=== PATIENT | male | born 1985 | race Caucasian/White ===

== ENCOUNTER → 2023-09-27 | Outpatient (CLI) | payer BC ==
--- NOTE | 2023-09-27 08:57 | US ---
EXAMINATION TYPE: US duplex aorta DATE OF EXAM: 09/27/2023 COMPARISON: NONE CLINICAL INDICATION: Male, 37 years old with history of Z82.49 FAMILY HX OF ISCHEMIC HEART DIS; 37 ye ar old pt states Family history of AAA TECHNIQUE: Multiple sonographic images of the abdominal aorta are obtained. FINDINGS: EXAM MEASUREMENTS: Abdominal Aorta: Proximal: 1.9 x 2.0 cm Mid: 1.6 x 1.7 cm Distal: 1.5 x 1.6 cm Bifurcation: Right Illiac: 0.8 x 0.7 cm Left Illiac: 0.7 x 0.8 cm [employer] NOTES: Aorta appeared wnl, no evidence of AAA IMPRESSION: No evidence for aortic aneurysm.
== END | disposition home or self-care (01) ==
LOC: RADUSWWP 07:43
PROVIDERS: ATTEND Family Medicine
DX: Z82.49 Family history of ischemic heart disease and other diseases of the circulatory system (principal)
CPT/HCPCS: 76706

== ENCOUNTER → 2024-11-19 | Outpatient (CLI) | payer BC ==
[2024-11-19 21:22] LABS: Basophils # (A) 0.07 X 10*3/uL (0.00-0.10); Basophils % (A) 0.8 %; Eosinophils # (A) 0.28 X 10*3/uL (0.04-0.35); Eosinophils % (A) 3.2 %; HCT 45.6 % (39.6-50.0); Lymphocytes # (A) 2.24 X 10*3/uL (0.90-5.00); Lymphocytes % (A) 25.6 %; MCH 29.9 pg (27.0-32.0); MCHC 35.1 g/dL (32.0-37.0); MCV 85.1 FL (80.0-97.0); Mean Platelet Volume 10.3 FL (9.5-12.2); Monocytes # (A) 0.84 X 10*3/uL (0.20-1.00); Monocytes % (A) 9.6 %; NRBC Per 100 WBC 0 X 10*3/uL (0.00-0.01); Neutrophils # (A) 5.28 X 10*3/uL (1.80-7.70); Neutrophils % (A) 60.3 %; Platelet Count 317 X 10*3/uL (140-440); RBC 5.36 X 10*6/uL (4.40-5.60); RDW 12.6 % (11.5-14.5); WBC 8.75 X 10*3/uL (4.50-10.00)
[2024-11-19 21:28] LABS: Appearance,Urine Clear (Clear); Bilirubin,Urine Negative (Negative); Blood,Urine Negative (Negative); Color,Urine Yellow (Yellow); Ketones,Urine Negative (Negative); Nitrite,Urine Negative (Negative); Specific Gravity,Urine 1.021 (1.001-1.030); Urobilinogen,Urine 0.2 E.U./DL
[2024-11-19 21:35] LABS: BUN/Creat Ratio 11.71 Ratio (12.00-20.00); Blood Urea Nitrogen 8.2 mg/dL (9.0-27.0); Glucose 96 mg/dL (70-110)
[2024-11-19 21:36] LABS: ALT 86 U/L (10-49); AST 43 U/L (14-35); Albumin 4.8 g/dL (3.8-4.9); Albumin/Globulin Ratio 1.78 Ratio (1.60-3.17); Alkaline Phosphatase 64 U/L (41-126); Calcium 10.3 mg/dL (8.7-10.3); Carbon Dioxide 23.2 mmol/L (21.6-31.8); Chloride 104 mmol/L (96-109); Globulin 2.7 g/dL (1.6-3.3); Potassium 4.4 mmol/L (3.5-5.5); Sodium 140 mmol/L (135-145); T4, Free (Free Thyroxine) 1.21 ng/dL (0.80-1.80); Total Bilirubin 0.5 mg/dL (0.3-1.2); Total Protein 7.5 g/dL (6.2-8.2)
== END | disposition home or self-care (01) ==
LOC: LABWHC1 16:29
PROVIDERS: ATTEND Registered Nurse
DX: Z13.6 Encounter for screening for cardiovascular disorders (principal); N40.0 Benign prostatic hyperplasia without lower urinary tract symptoms
CPT/HCPCS: 36415; 80053; 80061; 81003; 83036; 84153; 84439; 84443; 85025

== ENCOUNTER → 2024-12-24 | Outpatient (CLI) | payer BC ==
--- NOTE | 2024-12-24 09:18 | US ---
EXAMINATION TYPE: US abdomen limited DATE OF EXAM: 12/24/2024 COMPARISON: NONE CLINICAL INDICATION: Male, 39 years old with history of R74.8 ELEVATED LIVER ENZYMES,N40.0 ENLARGED P ROSTATE; Elevated liver enzymes TECHNIQUE: Grayscale and color Doppler imaging of the right upper quadrant was performed. FINDINGS: EXAM MEASUREMENTS: Liver Length: 15.3 cm Gallbladder Wall: 0.1 cm CBD: 0.4 cm Right Kidney: 12.8 x 6.6 x 5.2 cm Pancreas: Unremarkable Liver: Echogenic with mild attenuation. Gallbladder: wnl Evidence for sonographic Curry's sign: No CBD: wnl Right Kidney: No hydronephrosis or masses seen [employer]ivery [employer] notes: Exam limited by overlying bowel gas. IMPRESSION: 1. At least moderate hepatic steatosis. Correlate with LFTs, lipid profile, and patient risk factors. 2. No gallstones or biliary ductal dilatation. [facility], Workstation: [email or web address], 12/24/2024 9:15 AM
--- NOTE | 2024-12-24 09:19 | US ---
EXAMINATION TYPE: US pelvic limited DATE OF EXAM: 12/24/2024 COMPARISON: NONE CLINICAL INDICATION: Male, 39 years old with history of A; enlarged prostate TECHNIQUE: Transabdominal (TA). Transabdominal grayscale sonographic images of the pelvis were acquired. FINDINGS: EXAM MEASUREMENTS: Prostate: 4.2 x 5.1 x 3.9 cm 1. Prostate: visualized 2. Bladder: Distended, without gross abnormality Bilateral bladder jets seen 3. No free fluid seen. IMPRESSION: Mildly enlarged prostate gland with measurements above. [facility], Workstation: [email or web address], 12/24/2024 9:16 AM
== END | disposition home or self-care (01) ==
LOC: RADUSWWP 08:05
PROVIDERS: ATTEND Family Medicine
DX: K76.0 Fatty (change of) liver, not elsewhere classified (principal); R74.8 Abnormal levels of other serum enzymes; N40.0 Benign prostatic hyperplasia without lower urinary tract symptoms
CPT/HCPCS: 76705; 76857